=== PATIENT | male | born 1970 | race Caucasian/White ===

== ENCOUNTER 2018-02-18 09:01 | Emergency (ER) | END 2018-02-18 10:19 | disposition home or self-care (01) ==

== ENCOUNTER 2018-02-22 13:04 | Emergency (ER) | END 2018-02-22 15:15 | disposition home or self-care (01) ==

== ENCOUNTER 2018-02-24 15:59 | Emergency (ER) | END 2018-02-24 19:06 | disposition home or self-care (01) ==

== ENCOUNTER 2018-02-26 13:11 | Emergency (ER) | END 2018-02-26 16:27 | disposition home or self-care (01) ==